=== PATIENT | female | born 1945 | race Caucasian/White ===

== ENCOUNTER 2018-02-12 20:48 | Emergency (ER) | payer MEDICARE, BC ==
[~2018-02-12] VITALS: Ht 162.6 cm; Wt 51.7 kg
[2018-02-12 21:10] VITALS: BP 143/81
[2018-02-12] MEDS ORDERED: SILVER NITRATE APPLICATOR 1 EA BOX ONE (21:23)
[2018-02-12] MEDS ORDERED: OXYMETAZOLINE HCL NASAL SPRAY 30 ML BOTTLE NS ONE ×2 (21:47→22:00)
[2018-02-12] MEDS ORDERED: LIDOCAINE VISCOUS 2% UD 15 ML UDC ONE (21:47)
[2018-02-12] MEDS ORDERED: LIDOCAINE VISCOUS 2% UD 15 ML UDC MM ONE (22:00)
[2018-02-12] MEDS ORDERED: SILVER NITRATE APPLICATOR 1 EA BOX TP ONE (22:00)
== END 2018-02-12 22:22 | disposition home or self-care (01) ==
LOC: ER 20:52
DX: R04.0 Epistaxis (principal); I10 Essential (primary) hypertension; Z98.890 Other specified postprocedural states
CPT/HCPCS: 99284; A4606; Z7610